=== PATIENT | female | born 1995 | race African-American/Black ===

== ENCOUNTER 2020-12-28 04:20 | Day surgery (SDC) | payer OTHER ==
[2020-12-24 13:30] VITALS: BMI 31.5
[~2020-12-28 04:20] MED LIST: BUPIVACAINE HCL/PF 0.5% (5MG/ML) 10 ML VIAL IJ ONE; LIDOCAINE HCL 1%, 10 MG/ML (20ML VIAL) INF ONE
[2020-12-28] MEDS ORDERED: GENTAMICIN SO4 80 MG/2 ML VIAL ONE (07:06)
[2020-12-28] MEDS ORDERED: BUPIVACAINE HCL/PF 0.5% (5MG/ML) 10 ML VIAL ONE (07:07)
[2020-12-28] MEDS ORDERED: DEXAMETHASONE SOD PHOSPHATE 4 MG/1 ML VIAL ONE (07:07)
[2020-12-28] MEDS ORDERED: LIDOCAINE HCL 2% (20ML MULTI-DOSE VIAL) ONE (07:08)
[2020-12-28] MEDS ORDERED: MIDAZOLAM HCL 2 MG/2 ML SINGLE DOSE VIAL ONE (07:40)
[2020-12-28] MEDS ORDERED: KETAMINE HCL 200 MG/20 ML VIAL ONE (07:41)
[2020-12-28] MEDS ORDERED: PROPOFOL 20 ML ONE ×2 (07:46→07:56)
[2020-12-28] MEDS ORDERED: SUCCINYLCHOLINE CHLORIDE 200 MG/10 ML SYRINGE ONE (07:50)
[2020-12-28] MEDS ORDERED: LIDOCAINE HCL 1%, 10 MG/ML (20ML VIAL) INF ONE (08:10)
[2020-12-28] MEDS ORDERED: BUPIVACAINE HCL/PF 0.5% (5MG/ML) 10 ML VIAL IJ ONE (08:10)
[2020-12-28] MEDS ORDERED: DEXAMETHASONE SOD PHOSPHATE 4 MG/1 ML VIAL NR ONE (08:24)
[2020-12-28 09:06] VITALS: TEMP 98.8
[2020-12-28 10:08] VITALS: BP 128/74; PULSE 84
== END 2020-12-28 09:50 | disposition home or self-care (01) ==
LOC: JASU-SURG 04:20
PROVIDERS: ATTEND Podiatrist
PROC: 0L8W0ZZ Division of Left Foot Tendon, Open Approach (ICD-10-PCS; 2020-12-28)
PROC: 0SNQ0ZZ Release Left Toe Phalangeal Joint, Open Approach (ICD-10-PCS; 2020-12-28)
PROC: 0SRQ0JZ Replacement of Left Toe Phalangeal Joint with Synthetic Substitute, Open Approach (ICD-10-PCS; principal; 2020-12-28 07:30)
DX: M20.42 Other hammer toe(s) (acquired), left foot (principal); M20.41 Other hammer toe(s) (acquired), right foot
CPT/HCPCS: 81025; 88304-TC; 88311-TC